=== PATIENT | female | born 1950 | race Caucasian/White ===

== ENCOUNTER 2020-09-18 10:05 | Inpatient (IN) ==
[2020-09-18] MEDS ORDERED: 0.9 % Sodium Chloride 500 ML IVC ONE (10:14)
[2020-09-18] MEDS ORDERED: Isovue-370 500 ML BOTTLE IVP ONE (10:23)
[2020-09-18 10:38] LABS: Basophils % 0.6 %; Red Cell Distribution Width 16.5 % (11.5-14.5)
[2020-09-18 10:40] LABS: Basophils # 0.1 K/mcL (0.0-0.2); Eosinophils % 0.5 %; Hematocrit 19.6 % (35.3-44.9); Immature Granulocytes % 0.6 % (0-4); Lymphocytes # 1.2 K/mcL (0.6-4.6); Lymphocytes % 14.1 %; Mean Corpuscular HGB Conc 29.1 g/dL (31.6-35.5); Mean Corpuscular Hemoglobin 26.4 pg (28.0-33.3); Mean Corpuscular Volume 90.7 fL (83.0-100.0); Mean Platelet Volume 10.9 fL (9.4-12.4); Monocytes # 0.8 K/mcL (0.0-1.3); Monocytes % 8.9 %; Neutrophils # 6.4 K/mcL (1.6-8.9); Platelet Count 302 K/mcL (140-400); Red Blood Count 2.16 M/mcL (3.82-4.97); Segmented Neutrophils % 75.3 %; White Blood Count 8.5 K/mcL (4.3-11.1)
[2020-09-18 10:42] LABS: Hemoglobin 5.7 g/dL (11.5-15.4)
[2020-09-18 10:43] LABS: INR 1.5; Prothrombin Time 17.3 Seconds (9.4-12.1)
[2020-09-18] MEDS ORDERED: Pantoprazole 40 MG VIAL IVP ONE (10:44)
[2020-09-18 10:46] LABS: Activated Partial Thrombo Time 27.5 Seconds (26.0-36.0)
[2020-09-18 10:57] LABS: Platelet Estimate Normal (Normal)
[2020-09-18 10:58] LABS: Anisocytosis 1+ (Not Present); Hypochromasia Present (Not Present); Polychromasia 1+ (Not Present)
[2020-09-18 11:00] LABS: Alanine Aminotransferase 11 Units/L (7-52); Albumin 3.7 g/dL (3.5-5.7); Albumin/Globulin Ratio 1.5 (1.1-2.2); Alkaline Phosphatase 79 Units/L (34-104); Aspartate Amino Transferase 15 Units/L (13-39); BUN/Creatinine Ratio 31 (6-26); Bilirubin,Direct 0.1 mg/dL (0.0-0.2); Bilirubin,Indirect 0.6 mg/dL (0.0-1.0); Bilirubin,Total 0.7 mg/dL (0.3-1.0); Blood Urea Nitrogen 30 mg/dL (8-23); Calcium 8.9 mg/dL (8.6-10.3); Carbon Dioxide 20 mEq/L (23-29); Chloride 108 mEq/L (98-107); Globulin 2.4 g/dL (2.4-3.5); Glucose 107 mg/dL (70-105); Lipase 53 Units/L (11-82); Osmolality,Calculated 295 (280-300); Potassium 3.4 mEq/L (3.5-5.1); Sodium 139 mEq/L (136-145); Total Protein 6.1 g/dL (6.4-8.9); Troponin I < 0.03 ng/mL (< 0.04); eGFR For African Americans > 60 (> 60); eGFR For Non-African Americans 57 (> 60)
[2020-09-18] MEDS ORDERED: 0.9 % Sodium Chloride 1,000 ML IVC ONE (11:07)
[2020-09-18] MEDS ORDERED: *HR* Metoprolol 5 MG/5 ML VIAL IVP ONE ×2 (11:33→12:35)
[2020-09-18 12:13] LABS: Adenovirus Not Detected (Not Detect); Bordetella Pertussis Not Detected (Not Detect); Chlamydophila pneumoniae Not Detected (Not Detect); Coronavirus 229E Not Detected (Not Detect); Coronavirus HKU1 Not Detected (Not Detect); Coronavirus NL63 Not Detected (Not Detect); Coronavirus OC43 Not Detected (Not Detect); Human Metapneumovirus Not Detected (Not Detect); Human Rhinovirus/Enterovirus Not Detected (Not Detect); Influenza A Subtype 2009 H1 Not Detected (Not Detect); Influenza B Not Detected (Not Detect); Mycoplasma pneumoniae Not Detected (Not Detect); Parainfluenza Virus 1 Not Detected (Not Detect); Parainfluenza Virus 2 Not Detected (Not Detect); Parainfluenza Virus 3 Not Detected (Not Detect); Parainfluenza Virus 4 Not Detected (Not Detect); Respiratory Syncytial Virus Not Detected (Not Detect); SARS-CoV-2 Not Detected (Not Detect)
[2020-09-18] MEDS ORDERED: Naloxone 0.4 MG/ML INJ IVP PRN (12:41)
[2020-09-18] MEDS ORDERED: Amiodarone Premix 360 MG/200 ML BAG IVC ONE ×2 (15:29→15:32)
[2020-09-18 17:27] LABS: Hematocrit 22.5 % (35.3-44.9); Hemoglobin 6.8 g/dL (11.5-15.4)
[2020-09-18] MEDS: Pantoprazole 40 MG VIAL IVP SCH (18:24)
[2020-09-18] MEDS: Amiodarone Premix 360 MG/200 ML BAG IVC SCH (21:32)
[2020-09-19 05:08] LABS: Basophils # 0.1 K/mcL (0.0-0.2); Basophils % 0.8 %; Eosinophils # 0.1 K/mcL (0.0-0.6); Eosinophils % 1.6 %; Hematocrit 20.2 % (35.3-44.9); Hemoglobin 6.2 g/dL (11.5-15.4); Immature Granulocytes % 0.6 % (0-4); Lymphocytes # 1.5 K/mcL (0.6-4.6); Lymphocytes % 23.3 %; Mean Corpuscular HGB Conc 30.7 g/dL (31.6-35.5); Mean Corpuscular Hemoglobin 27.8 pg (28.0-33.3); Mean Corpuscular Volume 90.6 fL (83.0-100.0); Mean Platelet Volume 10.6 fL (9.4-12.4); Monocytes # 0.6 K/mcL (0.0-1.3); Monocytes % 9.9 %; Neutrophils # 4.1 K/mcL (1.6-8.9); Platelet Count 224 K/mcL (140-400); Red Blood Count 2.23 M/mcL (3.82-4.97); Red Cell Distribution Width 16.1 % (11.5-14.5); Segmented Neutrophils % 63.8 %; White Blood Count 6.4 K/mcL (4.3-11.1)
[2020-09-19] MEDS: Pantoprazole 40 MG VIAL IVP SCH ×2 (05:12→18:57)
[2020-09-19 05:30] LABS: BUN/Creatinine Ratio 28 (6-26); Blood Urea Nitrogen 23 mg/dL (8-23); Calcium 8.2 mg/dL (8.6-10.3); Carbon Dioxide 22 mEq/L (23-29); Chloride 113 mEq/L (98-107); Glucose 94 mg/dL (70-105); Osmolality,Calculated 295 (280-300); Phosphorous 2.1 mg/dL (2.7-4.5); Potassium 3.6 mEq/L (3.5-5.1); Sodium 141 mEq/L (136-145); eGFR For African Americans > 60 (> 60); eGFR For Non-African Americans > 60 (> 60)
[2020-09-19] MEDS ORDERED: Ondansetron 4 MG/2 ML VIAL IVP PRN (08:01)
[2020-09-19] MEDS ORDERED: 0.9 % Sodium Chloride 250 ML ONE ×2 (09:04→12:55)
[2020-09-19] MEDS: Furosemide 40 MG TABLET PO SCH (09:27)
[2020-09-19] MEDS: DilTIAZem CD (24hr) 180 MG CAP.ER.24H PO SCH (09:29)
[2020-09-19] MEDS ORDERED: Furosemide 20 MG/2 ML VIAL IVP ONE (10:00)
[2020-09-19 17:00] LABS: Hematocrit 27.8 % (35.3-44.9)
[2020-09-19 17:01] LABS: Hemoglobin 8.7 g/dL (11.5-15.4)
[2020-09-19] MEDS ORDERED: *HR* Metoprolol 5 MG/5 ML VIAL IVP ONE ×3 (17:21→18:02)
[2020-09-19] MEDS: Amiodarone Premix 360 MG/200 ML BAG IVC SCH (23:34)
[2020-09-20 04:52] LABS: Basophils # 0.1 K/mcL (0.0-0.2); Basophils % 0.7 %; Eosinophils # 0.2 K/mcL (0.0-0.6); Eosinophils % 2.2 %; Hematocrit 26.4 % (35.3-44.9); Hemoglobin 8.3 g/dL (11.5-15.4); Immature Granulocytes % 0.4 % (0-4); Lymphocytes # 1.6 K/mcL (0.6-4.6); Lymphocytes % 21.5 %; Mean Corpuscular HGB Conc 31.4 g/dL (31.6-35.5); Mean Corpuscular Hemoglobin 28.4 pg (28.0-33.3); Mean Corpuscular Volume 90.4 fL (83.0-100.0); Monocytes # 0.6 K/mcL (0.0-1.3); Monocytes % 8.8 %; Neutrophils # 4.8 K/mcL (1.6-8.9); Platelet Count 234 K/mcL (140-400); Red Blood Count 2.92 M/mcL (3.82-4.97); Red Cell Distribution Width 15.7 % (11.5-14.5); Segmented Neutrophils % 66.4 %; White Blood Count 7.2 K/mcL (4.3-11.1)
[2020-09-20 05:13] LABS: BUN/Creatinine Ratio 20 (6-26); Blood Urea Nitrogen 16 mg/dL (8-23); Calcium 8.2 mg/dL (8.6-10.3); Carbon Dioxide 24 mEq/L (23-29); Chloride 110 mEq/L (98-107); Glucose 92 mg/dL (70-105); Osmolality,Calculated 291 (280-300); Potassium 3.2 mEq/L (3.5-5.1); Sodium 140 mEq/L (136-145); eGFR For African Americans > 60 (> 60); eGFR For Non-African Americans > 60 (> 60)
[2020-09-20] MEDS: Pantoprazole 40 MG VIAL IVP SCH ×2 (05:22→20:34)
[2020-09-20] MEDS ORDERED: Lidocaine -MPF 2% 2 ML VIAL ONE ×2 (07:18→08:42)
[2020-09-20] MEDS ORDERED: Albumin Human 5% 12.5 GM/250 ML IV.SOLN ONE (07:27)
[2020-09-20] MEDS: DilTIAZem CD (24hr) 180 MG CAP.ER.24H PO SCH (07:50)
[2020-09-20] MEDS ORDERED: Potassium Chloride 40 MEQ, Lidocaine 1% 2 ML in 0.9 % Sodium Chloride 500 ML IVPB ONE (08:17)
[2020-09-20] MEDS ORDERED: *HR* Metoprolol 5 MG/5 ML VIAL IVP PRN (08:18)
[2020-09-20] MEDS ORDERED: *HR* Metoprolol 5 MG/5 ML VIAL IVP ONE (08:24)
[2020-09-20] MEDS ORDERED: DilTIAZem CD (24hr) 240 MG CAP.ER.24H PO SCH (09:00)
[2020-09-20] MEDS ORDERED: EPINEPHrine 1 MG/ML VIAL ONE (09:53)
[2020-09-20] MEDS ORDERED: EPHEDrine 50 MG/ML VIAL ONE (10:01)
[2020-09-20] MEDS ORDERED: *HR* Propofol 200 MG/20 ML VIAL IVP ONE (10:08)
[2020-09-20] MEDS: DilTIAZem SR (12hr) 60 MG CAP.ER.12H PO SCH ×2 (11:56→20:34)
[2020-09-20] MEDS: Furosemide 40 MG TABLET PO SCH (11:56)
[2020-09-20] MEDS ORDERED: 0.9 % Sodium Chloride 500 ML IVC ONE (12:40)
[2020-09-20] MEDS ORDERED: 0.9 % Sodium Chloride 500 ML ONE (13:07)
[2020-09-21 03:15] LABS: Basophils % 0.6 %; Eosinophils # 0.2 K/mcL (0.0-0.6); Eosinophils % 2.7 %; Hematocrit 22.6 % (35.3-44.9); Immature Granulocytes % 0.3 % (0-4); Lymphocytes # 1.5 K/mcL (0.6-4.6); Mean Corpuscular Hemoglobin 28.8 pg (28.0-33.3); Monocytes # 0.6 K/mcL (0.0-1.3); Monocytes % 8.6 %; Neutrophils # 4.4 K/mcL (1.6-8.9); Platelet Count 225 K/mcL (140-400); Red Blood Count 2.43 M/mcL (3.82-4.97); Red Cell Distribution Width 15.9 % (11.5-14.5); Segmented Neutrophils % 65.8 %; White Blood Count 6.7 K/mcL (4.3-11.1)
[2020-09-21 03:41] LABS: BUN/Creatinine Ratio 19 (6-26); Blood Urea Nitrogen 18 mg/dL (8-23); Calcium 8.1 mg/dL (8.6-10.3); Carbon Dioxide 24 mEq/L (23-29); Chloride 110 mEq/L (98-107); Glucose 101 mg/dL (70-105); Osmolality,Calculated 294 (280-300); Potassium 3.5 mEq/L (3.5-5.1); Sodium 141 mEq/L (136-145); eGFR For African Americans > 60 (> 60); eGFR For Non-African Americans 57 (> 60)
[2020-09-21] MEDS: Pantoprazole 40 MG VIAL IVP SCH ×2 (06:16→17:11)
[2020-09-21] MEDS ORDERED: 0.9 % Sodium Chloride 250 ML IVC SCH (08:30)
[2020-09-21] MEDS: DilTIAZem CD (24hr) 240 MG CAP.ER.24H PO SCH ×2 (10:18→15:18)
[2020-09-21] MEDS: Furosemide 40 MG TABLET PO SCH ×2 (10:18→15:18)
[2020-09-21 17:41] LABS: Hematocrit 27.9 % (35.3-44.9); Hemoglobin 8.8 g/dL (11.5-15.4)
[2020-09-22 02:29] LABS: Basophils % 0.7 %; Eosinophils # 0.2 K/mcL (0.0-0.6); Eosinophils % 2.8 %; Hematocrit 25.1 % (35.3-44.9); Hemoglobin 7.8 g/dL (11.5-15.4); Immature Granulocytes % 0.3 % (0-4); Lymphocytes # 1.5 K/mcL (0.6-4.6); Lymphocytes % 25.2 %; Mean Corpuscular HGB Conc 31.1 g/dL (31.6-35.5); Mean Corpuscular Hemoglobin 28.2 pg (28.0-33.3); Mean Corpuscular Volume 90.6 fL (83.0-100.0); Mean Platelet Volume 10.7 fL (9.4-12.4); Monocytes # 0.5 K/mcL (0.0-1.3); Monocytes % 9.2 %; Neutrophils # 3.6 K/mcL (1.6-8.9); Platelet Count 234 K/mcL (140-400); Red Blood Count 2.77 M/mcL (3.82-4.97); Red Cell Distribution Width 16.2 % (11.5-14.5); Segmented Neutrophils % 61.8 %; White Blood Count 5.8 K/mcL (4.3-11.1)
[2020-09-22 02:44] LABS: BUN/Creatinine Ratio 14 (6-26); Blood Urea Nitrogen 12 mg/dL (8-23); Calcium 8.5 mg/dL (8.6-10.3); Carbon Dioxide 25 mEq/L (23-29); Chloride 110 mEq/L (98-107); Glucose 90 mg/dL (70-105); Osmolality,Calculated 293 (280-300); Potassium 3.3 mEq/L (3.5-5.1); Sodium 142 mEq/L (136-145); eGFR For African Americans > 60 (> 60); eGFR For Non-African Americans > 60 (> 60)
[2020-09-22] MEDS: Pantoprazole 40 MG VIAL IVP SCH (05:56)
[2020-09-22] MEDS: Furosemide 40 MG TABLET PO SCH (08:08)
[2020-09-22] MEDS: DilTIAZem CD (24hr) 240 MG CAP.ER.24H PO SCH (08:09)
[2020-09-22] MEDS ORDERED: Potassium Chloride Elixir 20 MEQ/15 ML UDC PO ONE (08:41)
[2020-09-22 09:14] LABS: % Iron Saturation 5 % (15-50); Iron 18 mcg/dL (50-170); Transferrin 253 mg/dL (203-362)
[2020-09-22 09:35] LABS: Ferritin < 8 ng/mL (10-120)
[2020-09-22 10:29] LABS: Hematocrit 28.3 % (35.3-44.9); Hemoglobin 8.9 g/dL (11.5-15.4)
[2020-09-22 11:16] VITALS: BP 94/54
[2020-09-22] MEDS ORDERED: Iron Sucrose Complex 250 MG in 0.9 % Sodium Chloride 250 ML IVPB ONE (12:00)
[2020-09-22 12:13] LABS: Folate > 22.3 ng/mL (3.0-16.0); Vitamin B12 391 pg/mL (250-1100)
== END 2020-09-22 15:42 | disposition home or self-care (01) | DRG 378 ==
LOC: EMEROOARM 10:05 → ICNU 10:05 → SUATTDRO 09-19 08:25 → 2NNU 09-20 18:46
PROVIDERS: ADMIT General Practice; ATTEND Internal Medicine